=== PATIENT | female | born 1965 | race Caucasian/White ===

== ENCOUNTER 2017-12-26 16:03 | Outpatient (REF) | payer MEDICARE, SELFPAY ==
[2017-12-26 20:41] LABS: Abs Immature Grans 0.06 k/cumm (0.0-0.09); Absolute Basophil Count 0.05 k/cumm (0.0-0.2); Absolute Eosinophil Count 0.22 k/cumm (0.0-0.7); Absolute Lymphocyte Count 2.71 k/cumm (1.2-3.4); Absolute Monocyte Count 0.84 k/cumm (0.11-0.7); Absolute Neutrophil Count 7.84 k/cumm (1.2-6.7); Basophils % 0.4; Eosinophils % 1.9; Immature Grans % 0.5; Lymphocytes % 23.1; Mean Corp. HGB Concentration 33.3 g/dL (32.0-36.0); Mean Corpuscular Hemoglobin 32.8 pg (27.0-33.0); Mean Corpuscular Volume 98.5 fL (80-95); Mean Platelet Volume 10.8 fL (8.0-11.0); Monocytes % 7.2; Neutrophils % 66.9; Platelet Count 299 x1000/uL (130-400); RBC 4.57 m/cumm (4.00-5.20); RBC Distribution Width 13.1 % (11.7-14.6); White Blood Cell Count 11.72 k/cumm (4.4-10.8)
[2017-12-26 20:53] LABS: Anion Gap 11.2 mmol/L (3-11); BUN 12 mg/dL (7-18); CO2 25.8 mmol/L (21.0-32.0); CREATININE 0.92 mg/dL (0.55-1.02); Calcium 9.5 mg/dL (8.5-10.1); Chloride 104 mmol/L (98-107); Glucose 99 mg/dL (70-100); Potassium 4.6 mmol/L (3.5-5.1); Sodium 141 mmol/L (136-145); TSH (W/Ref FT4) 2.51 uIU/mL (0.358-3.74)
[2017-12-27 18:30] LABS: Magnesium 1.8 mg/dL (1.8-2.4)
== END 2017-12-26 16:23 ==
LOC: NCHCN 16:03
PROVIDERS: PCP Nurse Practitioner Family; Visit Provider Nurse Practitioner Family
DX: F41.8 Other specified anxiety disorders (principal); R34 Anuria and oliguria; L68.0 Hirsutism; E83.42 Hypomagnesemia; G47.33 Obstructive sleep apnea (adult) (pediatric); J44.9 Chronic obstructive pulmonary disease, unspecified; E66.9 Obesity, unspecified; M54.9 Dorsalgia, unspecified
CPT/HCPCS: 80048; 83735; 84443; 85025; 87086

== ENCOUNTER 2018-12-12 13:45 | Outpatient (REF) | payer BC, MEDICARE, SELFPAY ==
[2018-12-12 21:27] LABS: Abs Immature Grans 0.07 k/cumm (0.0-0.09); Absolute Eosinophil Count 0.16 k/cumm (0.0-0.7); Absolute Lymphocyte Count 2.65 k/cumm (1.2-3.4); Absolute Neutrophil Count 8.47 k/cumm (1.2-6.7); Basophils % 0.2; Eosinophils % 1.3; HCT 44.8 % (36.0-46.0); HGB 14.7 g/dL (12.0-15.5); Immature Grans % 0.6; Lymphocytes % 21.6; Mean Corp. HGB Concentration 32.8 g/dL (32.0-36.0); Mean Corpuscular Volume 97.6 fL (80-95); Mean Platelet Volume 10.3 fL (8.0-11.0); Monocytes % 7.3; Platelet Count 362 x1000/uL (130-400); RBC 4.59 m/cumm (4.00-5.20); RBC Distribution Width 13.2 % (11.7-14.6); White Blood Cell Count 12.27 k/cumm (4.4-10.8)
[2018-12-12 21:36] LABS: Absolute Basophil Count 0.02 k/cumm (0.0-0.2)
[2018-12-12 21:56] LABS: ALT 26 U/L (14-59); AST 16 U/L (15-37); Albumin 3.8 g/dL (3.4-5.0); Alkaline Phosphatase 72 U/L (46-116); Anion Gap 12.1 mmol/L (3-11); BUN 13 mg/dL (7-18); Bilirubin, Total 0.3 mg/dL (0.2-1.0); CO2 25.9 mmol/L (21.0-32.0); CREATININE 0.89 mg/dL (0.55-1.02); Calcium 9.3 mg/dL (8.5-10.1); Chloride 101 mmol/L (98-107); Glucose 94 mg/dL (70-100); Magnesium 1.6 mg/dL (1.8-2.4); Potassium 4.4 mmol/L (3.5-5.1); Sodium 139 mmol/L (136-145); TSH (W/Ref FT4) 2.18 uIU/mL (0.36-3.74); Total Protein 7.3 g/dL (6.4-8.2)
== END 2018-12-12 14:05 ==
LOC: NCHCN 13:45
PROVIDERS: PCP Nurse Practitioner Family; Visit Provider Nurse Practitioner Family
DX: R00.0 Tachycardia, unspecified (principal); E83.42 Hypomagnesemia; R79.89 Other specified abnormal findings of blood chemistry; R10.32 Left lower quadrant pain; I10 Essential (primary) hypertension; R19.7 Diarrhea, unspecified; L68.0 Hirsutism; J44.9 Chronic obstructive pulmonary disease, unspecified
CPT/HCPCS: 80053; 83036; 83735; 84443; 85025

== ENCOUNTER 2019-09-13 21:47 | Outpatient (REF) | payer OTHER, MEDICARE, SELFPAY ==
[2019-09-13 21:12] LABS: Hemoglobin A1C 5.9 % (3.8-5.6)
[2019-09-13 21:20] LABS: ALT 26 U/L (14-59); AST 16 U/L (15-37); Albumin 3.7 g/dL (3.4-5.0); Alkaline Phosphatase 82 U/L (46-116); Anion Gap 9.5 mmol/L (3-11); BUN 18 mg/dL (7-18); Bilirubin, Total 0.3 mg/dL (0.2-1.0); CO2 28.5 mmol/L (21.0-32.0); CREATININE 1.07 mg/dL (0.55-1.02); Calcium 9.3 mg/dL (8.5-10.1); Chloride 102 mmol/L (98-107); Estimated GFR 54.06 (mL/min/1.73m2); Glucose 75 mg/dL (74-106); Magnesium 1.8 mg/dL (1.8-2.4); Potassium 4.5 mmol/L (3.5-5.1); Sodium 140 mmol/L (136-145); Total Protein 7.1 g/dL (6.4-8.2)
[2019-09-17 10:37] LABS: HIV-1/2 Ag & Ab Screen Negative (Negative)
[2019-09-17 11:02] LABS: Hepatitis C Ab w Rflx HCV PCR Negative (Negative)
== END 2019-09-13 22:07 ==
LOC: NCHCN 21:47
PROVIDERS: PCP Nurse Practitioner Family; Visit Provider Nurse Practitioner Family
DX: R73.03 Prediabetes (principal); E83.42 Hypomagnesemia; I10 Essential (primary) hypertension; F41.8 Other specified anxiety disorders; F10.10 Alcohol abuse, uncomplicated; E66.9 Obesity, unspecified; M54.9 Dorsalgia, unspecified; Z11.4 Encounter for screening for human immunodeficiency virus [HIV]; Z11.59 Encounter for screening for other viral diseases
CPT/HCPCS: 80053; 86803; 87389; 83036; 83735

== ENCOUNTER 2020-02-08 22:30 | Outpatient (REF) | payer OTHER, MEDICARE, SELFPAY ==
[2020-02-08 22:10] LABS: Hemoglobin A1C 6.1 % (<5.7)
== END 2020-02-08 22:50 ==
LOC: NCHCN 22:30
PROVIDERS: PCP Nurse Practitioner Family; Visit Provider Nurse Practitioner Family
DX: R73.03 Prediabetes (principal)
CPT/HCPCS: 83036

== ENCOUNTER 2020-08-07 16:35 | Outpatient (REF) | payer OTHER, MEDICARE, SELFPAY ==
[2020-08-07 20:58] LABS: Abs Immature Grans 0.08 10^3/uL (0.0-0.06); Absolute Monocyte Count 0.78 10^3/uL (0.1-0.8); Basophils % 0.3; HCT 45.8 % (36.0-46.0); Immature Grans % 0.7; Lymphocytes % 18.7; MCH 31.7 pg (27.0-33.0); MCHC 32.8 % (32.0-36.0); MCV 96.8 fL (80-95); MPV 10.7 fL (8.0-11.0); Monocytes % 6.8; Neutrophils % 72.5; Nucleated RBC 0 %; Platelet Count 339 10^3/uL (130-400); RBC 4.73 10^6/uL (3.93-5.22); RDW 13.9 % (11.7-14.6); RDW-SD 49.7 fL; WBC 11.47 10^3/uL (4.4-10.8)
[2020-08-07 21:09] LABS: Iron 82 ug/dL (50-170); Total Iron Binding Capacity 362 ug/dL (250-450); Transferrin Sat 23 % (15-50)
[2020-08-07 21:17] LABS: Absolute Basophil Count 0.03 10^3/uL (0.0-0.2); Absolute Eosinophil Count 0.11 10^3/uL (0.0-0.7); Absolute Lymphocyte Count 2.14 10^3/uL (1.2-3.4); Absolute Neutrophil Count 8.32 10^3/uL (1.2-6.7)
[2020-08-07 21:36] LABS: AST 39 U/L (15-37); Albumin 3.7 g/dL (3.4-5.0); Alkaline Phosphatase 89 U/L (46-116); Anion Gap 8.8 mmol/L (3-11); BUN 19 mg/dL (7-18); Bilirubin, Total 0.4 mg/dL (0.2-1.0); CO2 31.2 mmol/L (21.0-32.0); CREATININE 1.1 mg/dL (0.55-1.02); Calcium 9.7 mg/dL (8.5-10.1); Chloride 103 mmol/L (98-107); Estimated GFR 52.16 (mL/min/1.73m2); Ferritin 171 ng/mL (8-252); Glucose 105 mg/dL (74-106); Potassium 4.1 mmol/L (3.5-5.1); Sodium 143 mmol/L (136-145); TSH (W/Ref FT4) 1.52 uIU/mL (0.36-3.74); Total Protein 7.5 g/dL (6.4-8.2); Vitamin B12 483 pg/mL (193-986)
[2020-08-07 21:45] LABS: Hemoglobin A1C 6.3 % (<5.7)
[2020-08-07 21:56] LABS: ALT 54 U/L (14-59); Magnesium 1.6 mg/dL (1.8-2.4); NT-proBNP 37 pg/mL (<300)
== END 2020-08-07 16:36 | disposition home or self-care (01) ==
LOC: NCHCN 16:35
PROVIDERS: PCP Nurse Practitioner Family; Visit Provider Nurse Practitioner Family
DX: R73.03 Prediabetes (principal); E83.42 Hypomagnesemia; F41.8 Other specified anxiety disorders; K76.0 Fatty (change of) liver, not elsewhere classified; R13.10 Dysphagia, unspecified; J44.9 Chronic obstructive pulmonary disease, unspecified; I43 Cardiomyopathy in diseases classified elsewhere; G47.33 Obstructive sleep apnea (adult) (pediatric)
CPT/HCPCS: 80053; 82607; 82728; 83036; 83540; 83550; 83735; 83880; 84443; 85025

== ENCOUNTER 2021-07-02 18:42 | Outpatient (REF) | payer MEDICARE, SELFPAY ==
[2021-07-02 22:14] LABS: HCT 49.4 % (36.0-46.0); HGB 15.7 g/dL (11.2-15.7); MCH 31.2 pg (27.0-33.0); MCHC 31.8 % (32.0-36.0); MCV 98.2 fL (80-95); MPV 10.7 fL (8.0-11.0); Platelet Count 288 10^3/uL (130-400); RBC 5.03 10^6/uL (3.93-5.22); RDW 13.9 % (11.7-14.6); RDW-SD 50.4 fL; WBC 12.17 10^3/uL (4.4-10.8)
[2021-07-02 22:22] LABS: ALT 26 U/L (14-59); AST 20 U/L (15-37); Albumin 3.7 g/dL (3.4-5.0); Alkaline Phosphatase 92 U/L (46-116); BUN 16 mg/dL (7-18); Bilirubin, Total 0.4 mg/dL (0.2-1.0); CREATININE 0.9 mg/dL (0.55-1.02); Calcium 9.1 mg/dL (8.5-10.1); Chloride 101 mmol/L (98-107); Glucose 91 mg/dL (74-106); Potassium 4.6 mmol/L (3.5-5.1); Sodium 141 mmol/L (136-145); Total Protein 7.5 g/dL (6.4-8.2)
[2021-07-02 22:31] LABS: Hemoglobin A1C 6.1 % (<5.7)
[2021-07-06 10:26] LABS: Magnesium 1.8 mg/dL (1.8-2.4)
== END 2021-07-02 18:43 | disposition home or self-care (01) ==
LOC: NCHCN 18:42
PROVIDERS: PCP Nurse Practitioner Family; Visit Provider Nurse Practitioner Family
DX: R73.03 Prediabetes (principal); R13.10 Dysphagia, unspecified; K76.0 Fatty (change of) liver, not elsewhere classified; F41.8 Other specified anxiety disorders; F17.209 Nicotine dependence, unspecified, with unspecified nicotine-induced disorders
CPT/HCPCS: 80053; 85027; 83036; 83735

== ENCOUNTER 2022-08-26 18:05 | Outpatient (REF) | payer MEDICARE, SELFPAY ==
[2022-08-26 14:59] LABS: Abs Immature Grans 0.06 10^3/uL (0.0-0.06); Absolute Monocyte Count 1.02 10^3/uL (0.1-0.8); Basophils % 0.3; Eosinophils % 1.4; HCT 45.6 % (36.0-46.0); HGB 14.9 g/dL (11.2-15.7); Immature Grans % 0.5; Lymphocytes % 22.9; MCH 31.5 pg (27.0-33.0); MCHC 32.7 % (32.0-36.0); MCV 96 fL (80-95); MPV 11.1 fL (8.0-11.0); Monocytes % 8.6; Neutrophils % 66.3; Platelet Count 288 10^3/uL (130-400); RBC 4.73 10^6/uL (3.93-5.22); RDW 12.4 % (11.7-14.6); RDW-SD 44.1 fL; WBC 11.81 10^3/uL (4.4-10.8)
[2022-08-26 15:00] LABS: Absolute Basophil Count 0.04 10^3/uL (0.0-0.2); Absolute Eosinophil Count 0.17 10^3/uL (0.0-0.7); Absolute Neutrophil Count 7.83 10^3/uL (1.2-6.7)
== END 2022-08-26 18:06 | disposition home or self-care (01) ==
LOC: NCHCN 18:05
PROVIDERS: PCP Nurse Practitioner Family; Visit Provider Nurse Practitioner Family
DX: D75.1 Secondary polycythemia (principal); D72.829 Elevated white blood cell count, unspecified; I50.9 Heart failure, unspecified; K76.0 Fatty (change of) liver, not elsewhere classified
CPT/HCPCS: 85025

== ENCOUNTER 2022-09-20 01:32 | Outpatient (CLI) | payer MEDICARE, SELFPAY ==
--- NOTE | 2022-09-20 | DI.US_ITS ---
Exam(s) US ABDOMEN LIMITED EXAM: US ABDOMEN LIMITED CLINICAL HISTORY: FATTY LIVER DISEASE, K76.0 TECHNIQUE: Ultrasound abdomen performed using standard protocol. US PELVIS TRANSVAG from 01/02/2015 CT CHEST WITHOUT CONTRAST from 04/25/2015 FINDINGS: GALLBLADDER: No evidence of cholelithiasis. No evidence of wall thickening. No pericholecystic fluid identified. ANNA'S SIGN: Negative. BILIARY SYSTEM: No intrahepatic or extrahepatic biliary ductal dilation. RIGHT KIDNEY: Normal size. No evidence of renal calculi. Mildly prominent right renal pelvis.. No duke spicious renal mass. No cyst identified. PANCREAS: Normal where visualized. ABDOMINAL AORTA AND IVC: Visualized portions normal caliber. ASCITES: None seen. LIVER: Enlarged at 19.1 cm. Fatty infiltration.. No focal liver lesions are seen.. IMPRESSION: Enlarged liver with mild to moderate hepatic steatosis. DATA REPOSITORY:
--- NOTE | 2022-09-20 | DI.CTLCSR_ITS ---
Exam(s) CT CHEST LUNG CANCER SCREEN EXAM: CT CHEST LUNG CANCER SCREEN CLINICAL HISTORY: CIGARETTE SMOKER, F17.210, TOBACCO DISORDER, F17.209, SCREEN FOR LUNG CA TECHNIQUE: Imaging Protocol: Axial computed tomography images with coronal and sagittal reformatted images were created and reviewed. Low dose screening protocol. COMPARISON: CT CHEST WITHOUT CONTRAST from 04/25/2014 CT CHEST HIGH RESOLUTION from 04/25/2014 CT CHEST WITHOUT CONTRAST from 04/25/2015 FINDINGS: Tracheobronchial tree: No bronchiectasis or mucus plugging.. Mediastinum and Lia: No dominant adenopathy or fluid collection. Pulmonary parenchyma: No consolidation or dominant measurable mass. Mild linear scarring at the base s. Linear scarring right upper lobe. Mild emphysematous changes. Lung Nodules: Stable small right-sided perifissural nodules. Stable 7 millimeter subpleural nodule r ight lower lobe. Stable 7 millimeters subpleural nodule right middle lobe. Pleura: No effusion. No pneumothorax. Heart: The heart is not dilated. No coronary artery calcifications are seen. Aorta: Thoracic aorta non-dilated. Upper abdomen: Unremarkable. Bones: Degenerative disc changes. Soft Tissues: Unremarkable. IMPRESSION: No suspicious pulmonary nodules. Stable subpleural nodules. Lung RADS Cat 2 - Benign Appearance / Behavior: Nodules with a very low likelihood of becoming a clin ically active cancer due to size or lack of growth Lung-RADS 1.0 CATEGORIES: Category 0 - Prior chest CT exam(s) being located for comparison. Category 1 - Annual screening in 12 months. No nodules or definitely benign nodules. Category 2 - Annual screening in 12 months. Benign appearance. Nodules with low likelihood of becomin g active cancer. Category 3 - 6-month follow-up. Probably benign. Short-term follow-up suggested. Nodules with low lik elihood of becoming active cancer. Category 4A - 3-month follow-up and CT/PET if >8 mm in size. Suspicious finding. Findings which requi re additional testing. Category 4B - Findings which require additional testing and tissue sampling. Category 4X - Category 3 or 4 nodules with additional features or imaging findings that increases the suspicion of malignancy. Modifier S- Potentially clinically significant findings (non lung cancer) RADIATION DOSE DELIVERED: 92.07mGy.cm Total DLP DATA REPOSITORY: All CT scans at this facility are submitted to the National Radiology Data Registry (NRDR) Dose Index Registry (DIR) with the [employer] (ACR). RADIATION OPTIMIZATION: All CT scans at this facility use at least one of these dose optimization te chniques: automated exposure control; mA and/or kV adjustment per patient size (includes targeted exa ms where dose is matched to clinical indication); or iterative reconstruction.
== END 2022-09-20 01:52 ==
LOC: DI 01:32
PROVIDERS: PCP Nurse Practitioner Family; Visit Provider Nurse Practitioner Family
DX: F17.210 Nicotine dependence, cigarettes, uncomplicated (principal); Z12.2 Encounter for screening for malignant neoplasm of respiratory organs
CPT/HCPCS: 71271; 99203; 76705

== ENCOUNTER 2022-09-20 08:21 | Outpatient (CLI) | payer MEDICARE, SELFPAY ==
--- NOTE | 2022-09-20 08:15 | RT.EKG_ITS ---
APPROVED REPORT Exam: Resting ECG Reason for Exam: HTN, heart failure Patient Location: O HR:82 bpm ECG Measurements Heart Rate 82 AXIS NE 176 P 40 QRSd 97 QRS -29 QT 385 T 57 QTc 450 Conclusion Sinus rhythm...normal P axis, V-rate 50- 99 left axis deviation...QRS axis (-15,-29) Low voltage, Poor R wave progression
== END 2022-09-20 08:22 | disposition home or self-care (01) ==
LOC: DI.CARD 08:24
PROVIDERS: PCP Nurse Practitioner Family; Visit Provider Internal Medicine Cardiovascular Disease
DX: I10 Essential (primary) hypertension (principal); I50.9 Heart failure, unspecified
CPT/HCPCS: 93010

== ENCOUNTER 2022-09-20 10:57 | Outpatient (CLI) | payer MEDICARE, SELFPAY ==
[2022-09-20 10:22] LABS: Abs Immature Grans 0.06 10^3/uL (0.0-0.06); Absolute Eosinophil Count 0.15 10^3/uL (0.0-0.7); Absolute Lymphocyte Count 2.23 10^3/uL (1.2-3.4); Absolute Monocyte Count 0.73 10^3/uL (0.1-0.8); Basophils % 0.2; Eosinophils % 1.2; HCT 43.7 % (36.0-46.0); HGB 14.2 g/dL (11.2-15.7); Immature Grans % 0.5; Lymphocytes % 18.1; MCH 31.3 pg (27.0-33.0); MCHC 32.5 % (32.0-36.0); MCV 97 fL (80-95); MPV 10.3 fL (8.0-11.0); Monocytes % 5.9; Neutrophils % 74.1; Platelet Count 279 10^3/uL (130-400); RBC 4.53 10^6/uL (3.93-5.22); RDW 12.6 % (11.7-14.6); RDW-SD 44.7 fL
[2022-09-20 10:24] LABS: Absolute Basophil Count 0.02 10^3/uL (0.0-0.2); Absolute Neutrophil Count 9.11 10^3/uL (1.2-6.7)
[2022-09-20 10:36] LABS: Hemoglobin A1C 5.9 % (<5.7)
[2022-09-20 11:45] LABS: ALT 32 U/L (14-59); AST 19 U/L (15-37); Albumin 3.6 g/dL (3.4-5.0); Alkaline Phosphatase 83 U/L (46-116); Anion Gap 8.1 mmol/L (3-11); BUN 19 mg/dL (7-18); Bilirubin, Total 0.4 mg/dL (0.2-1.0); CO2 28.9 mmol/L (21.0-32.0); CREATININE 0.9 mg/dL (0.55-1.02); Calcium 9.9 mg/dL (8.5-10.1); Chloride 105 mmol/L (98-107); Estimated GFR 75.97 (mL/min/1.73m2); Folate 12.5 ng/mL (8.6-20.0); Glucose 117 mg/dL (74-106); Magnesium 1.7 mg/dL (1.8-2.4); Potassium 4.2 mmol/L (3.5-5.1); Sodium 142 mmol/L (136-145); Total Protein 8.3 g/dL (6.4-8.2); Vitamin B12 494 pg/mL (193-986)
[2022-10-05 12:54] LABS: Results See Comments; Specimen Type Blood
[2022-10-05 13:02] LABS: Interpretation See Comments
[2022-10-05 13:08] LABS: Method See Comments
[2022-10-05 13:15] LABS: Limitations and Disclaimers See Comments
[2022-10-05 13:18] LABS: Verified By: See Comments
== END 2022-09-20 10:58 | disposition home or self-care (01) ==
LOC: LBO 10:57
PROVIDERS: PCP Nurse Practitioner Family; Visit Provider Nurse Practitioner Family
DX: R73.03 Prediabetes (principal); D75.1 Secondary polycythemia; D72.829 Elevated white blood cell count, unspecified; D75.89 Other specified diseases of blood and blood-forming organs; E83.42 Hypomagnesemia; K76.0 Fatty (change of) liver, not elsewhere classified
CPT/HCPCS: 0027U; 36415; 80053; 81270; 82607; 82746; 83036; 83735; 85025

== ENCOUNTER → 2022-12-28 00:04 | Outpatient (CLI) | payer MEDICARE, SELFPAY ==
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
--- NOTE | 2022-12-28 07:00 | DI.US_ITS ---
APPROVED REPORT EXAM: Comprehensive 2D, Doppler, and color-flow Echocardiogram Patient Location: Out-Patient Employment Interviewer: Magalie Molina RDCS (AE) Indications: RE check LV Function, Cardiomyopathy, Obstructive sleep apnea, COPD Other Information Study Quality: Fair. Technically limited study due to body habitus. Conclusion Technically difficult study Normal left ventricular wall thickness and chamber size. Ejection fraction is 55%. Wall motion is n ormal Normal right ventricular size and systolic function Both atria are normal in size There is no structural or hemodynamically significant valvular disease Right ventricular systolic pressure could not be estimated Wall motion Left Ventricle Left ventricle is mildly dilated. The overall left ventricular systolic function appears normal. Ther e is normal left ventricular wall thickness. There is normal LV segmental wall motion. There is no ve ntricular septal defect visualized. LVEF is 55%. Right Ventricle The right ventricle is normal size. The right ventricular systolic function is normal. Atria The left atrium size is normal. The right atrium size is normal. The interatrial septum is intact wit h no evidence for an atrial septal defect. Aortic Valve The aortic valve is normal in structure. Aortic valve is trileaflet. There is no aortic valvular sten osis. No aortic regurgitation is present. Mitral Valve The mitral valve is normal in structure. No evidence of mitral valve stenosis. Trace mitral regurgita tion. Tricuspid Valve The tricuspid valve is normal in structure. There is no tricuspid valve stenosis. Trace tricuspid reg urgitation. Unable to assess PA pressure. Pulmonic Valve Pulmonic valve is not well visualized. There is no pulmonic valvular stenosis. There is no pulmonic v alvular regurgitation. Great Vessels The aortic root is normal in size. The ascending aorta is normal in size. Aortic arch is not well vis ualized. IVC is normal in size and collapses >50% with inspiration. Pericardium There is no pericardial effusion. 2D Dimensions IVSD d PLAX 0.83 cm F: 0.6-1.0 Ao Root d 2.80 cm F: 2.7 - 3.3 LVPW d PLAX 0.88 cm F: 0.6 - 1.0 Ao Asc Diam d 2.87 cm F: 2.3 - 3.1 LVID d PLAX 5.46 cm F: 3.8 - 5.2 LVDs 3.81 cm F: 2.2 - 3.5 LV EF Teichholz 56.9 % FS 30.15 % LV EDV (Teich) 145.0 mL LV ESV (Teich) 62.5 mL M-Mode TAPSE 2.32 cm (M/F) >1.7 Auto EF LV EDV A4C 102.0 mL LV EDV A2C 103.0 mL LV EDV BP 102.3 mL LV ESV A4C 45.3 mL LV ESV A2C 48.0 mL LV ESV BP 46.3 mL LVEF(%) A4C 55.6 % LVEF(%) A2C 53.4 % LVEF(%) BP 54.8 % LV SV A4C 56.8 ml LV SV A2C 55.0 ml LV SV BP 56.0 ml LV CO A4C 3.0 L/min LV CO A2C 3.3 L/min LV CO BP 3.1 L/min HR A4C 53.09 BPM HR A2C 59.31 BPM LV EDV Index (BP) LA Volume LA Length A4C 5.7 cm LA Length A2C 5.0 cm LA Area A4C s 16.17 cm2 LA Area A2C s 14.28 cm2 LA Vol A4C A-L 38.85 mL LA Vol A2C A-L 34.38 mL LA Vol Biplane A-L 38.9 mL LA Vol/BSA A4C A-L LA Vol/BSA A2C A-L LA Vol/BSA BP A-L 15.1 mL/m2 LA Vol A4C MOD 37.4 mL LA Vol A2C MOD 33.1 mL LA Vol BP MOD 37.3 mL RA Volume RA Area A4C 12.2 cm2 RA ESV A4C (A-L) 25.6mL RA Vol/BSA A4C A-L RA Length A4C 4.9 cm RA ESV A4C (MOD) 24.3mL LV Diastology MV E' medial 0.084 (>0.07 m/s) MV E Vmax 0.71 (0.4-1.3 m/s) MV E/E' MED 8.46 (<14) MV A Vmax 0.65 (0.4-1.3 m/s) MV E' lateral 0.098 (>0.1 m/s) E/A Ratio 1.1 MV E/E' LAT 7.28 (<14) MV E' Average 0.091 m/s MV E/E'(average) 7.83 Aortic Valve AoV Vmax 1.12 m/s LVOT Diam s 2.05 cm AoV Peak Grad 5.1 mmHg AoV VTI 0.218 m AoV Mean Eloy. 0.63 m/s AoV Mean Grad 2.0 mmHg Mitral Valve MV DT 182 (160-240 msec) MV Vmax TIPS 0.78 m/s MV Mean Grad 0.9 (<2mmHg) MV VTI 0.254 m Pulmonary Valve PV Vmax 0.87 (0.5-1.5 m/s) RVOT Vmax 0.71 m/s PV Peak Grad 3.0 mmHg RVOT Peak Gr. 2.0 mmHg PV Mean Eloy 0.63 m/s RVOT VTI 0.192 m PV Mean Grad 1.8 mmHg RVOT Mean Gr. 1.3 mmHg Tricuspid Valve RA Pressure 3.00 mmHg TV S' 0.13 m/s
== END ==
PROVIDERS: PCP Nurse Practitioner Family; Visit Provider Internal Medicine Cardiovascular Disease
DX: G47.33 Obstructive sleep apnea (adult) (pediatric) (principal)
CPT/HCPCS: 93306

== ENCOUNTER 2023-01-10 04:01 | Outpatient (CLI) | payer MEDICARE, SELFPAY ==
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
[2023-01-10] MEDS: Levalbuterol HFA 15 GM INH 4 PUFF IH (09:23)
[2023-01-10] MEDS: Inhaler, Assist Device 1 EACH MC (09:24)
--- NOTE | 2023-01-10 14:17 | W.PFT ---
Date of service: 01/10/23 Time of Service: 08:03 Pulmonary Function Test Result Indications: COPD Interpretation Spirometry: There is severe airflow limitation. No bronchodilator response. Lung Volumes: Unable to perform Diffusion Capacity: Reduced diffusion Airway Pressure: Unable to perform Impression Severe airflow obstruction with a reduced diffusion Clinical Correlation therefore is recommended.
== END 2023-01-10 04:02 | disposition home or self-care (01) ==
LOC: RT 04:01
PROVIDERS: PCP Nurse Practitioner Family; Visit Provider Physician Assistant Surgical
DX: J44.9 Chronic obstructive pulmonary disease, unspecified (principal)
CPT/HCPCS: 94060; 94729

== ENCOUNTER 2023-04-07 14:29 | Outpatient (REF) | payer MEDICARE, SELFPAY ==
[2023-04-07 14:19] LABS: Abs Immature Grans 0.07 10^3/uL (0.0-0.06); Absolute Basophil Count 0.06 10^3/uL (0.0-0.2); Absolute Eosinophil Count 0.17 10^3/uL (0.0-0.7); Absolute Neutrophil Count 10.51 10^3/uL (1.2-6.7); Basophils % 0.4; Eosinophils % 1.2; HCT 45.1 % (36.0-46.0); Immature Grans % 0.5; Lymphocytes % 18.6; MCH 32.3 pg (27.0-33.0); MCHC 33.3 % (32.0-36.0); MCV 97 fL (80-95); MPV 10.3 fL (8.0-11.0); Monocytes % 6.9; Neutrophils % 72.4; Platelet Count 335 10^3/uL (130-400); RBC 4.65 10^6/uL (3.93-5.22); RDW 12.7 % (11.7-14.6); RDW-SD 45.1 fL; WBC 14.51 10^3/uL (4.4-10.8)
[2023-04-07 14:32] LABS: Magnesium 1.8 mg/dL (1.8-2.4)
== END 2023-04-07 14:30 | disposition home or self-care (01) ==
LOC: NCHCN 14:29
PROVIDERS: PCP Nurse Practitioner Family; Visit Provider Nurse Practitioner Family
DX: D75.1 Secondary polycythemia (principal); K76.0 Fatty (change of) liver, not elsewhere classified; R73.03 Prediabetes; E83.42 Hypomagnesemia
CPT/HCPCS: 83036; 83735; 85025

== ENCOUNTER → 2023-08-29 10:05 | Outpatient (BNVA) | payer MEDICARE, SELFPAY | PROVIDERS: PCP Nurse Practitioner Family; Referring Provider Nurse Practitioner Family; Visit Provider Physician Assistant Surgical | DX: J44.9 Chronic obstructive pulmonary disease, unspecified (principal); R91.8 Other nonspecific abnormal finding of lung field; G47.33 Obstructive sleep apnea (adult) (pediatric); J96.91 Respiratory failure, unspecified with hypoxia; I27.20 Pulmonary hypertension, unspecified; F17.210 Nicotine dependence, cigarettes, uncomplicated | CPT/HCPCS: 99214 ==

== ENCOUNTER 2023-08-30 18:23 | Outpatient (REF) | payer MEDICARE, SELFPAY ==
[2023-08-30 21:22] LABS: Abs Immature Grans 0.05 10^3/uL (0.0-0.06); Absolute Basophil Count 0.03 10^3/uL (0.0-0.2); Absolute Eosinophil Count 0.16 10^3/uL (0.0-0.7); Absolute Lymphocyte Count 2.98 10^3/uL (1.2-3.4); Absolute Monocyte Count 0.86 10^3/uL (0.1-0.8); Absolute Neutrophil Count 8.58 10^3/uL (1.2-6.7); Basophils % 0.2 %; Eosinophils % 1.3 %; HCT 45.8 % (36.0-46.0); HGB 14.8 g/dL (11.2-15.7); Immature Grans % 0.4 %; Lymphocytes % 23.5 %; MCH 31.4 pg (27.0-33.0); MCHC 32.3 % (32.0-36.0); MCV 97 fL (80-95); MPV 10.4 fL (8.0-11.0); Monocytes % 6.8 %; Neutrophils % 67.8 %; Platelet Count 328 10^3/uL (130-400); RBC 4.71 10^6/uL (3.93-5.22); RDW 12.9 % (11.7-14.6); RDW-SD 45.7 fL; WBC 12.66 10^3/uL (4.4-10.8)
[2023-08-30 21:33] LABS: ALT 25 U/L (14-59); AST 14 U/L (15-37); Albumin 3.5 g/dL (3.4-5.0); Alkaline Phosphatase 85 U/L (46-116); Anion Gap 8.3 mmol/L (3-11); BUN 20 mg/dL (7-18); Bilirubin, Total 0.3 mg/dL (0.2-1.0); CO2 30.7 mmol/L (21.0-32.0); CREATININE 1.1 mg/dL (0.55-1.02); Calcium 9.5 mg/dL (8.5-10.1); Chloride 100 mmol/L (98-107); Estimated GFR 59.34 (mL/min/1.73m2); Glucose 92 mg/dL (74-106); Magnesium 1.7 mg/dL (1.8-2.4); Potassium 4.4 mmol/L (3.5-5.1); Sodium 139 mmol/L (136-145); Total Protein 7.6 g/dL (6.4-8.2)
[2023-08-30 21:36] LABS: Hemoglobin A1C 6.1 % (<5.7)
== END 2023-08-30 18:24 | disposition home or self-care (01) ==
LOC: NCHCN 18:23
PROVIDERS: PCP Nurse Practitioner Family; Visit Provider Nurse Practitioner Family
DX: K76.0 Fatty (change of) liver, not elsewhere classified (principal); E83.42 Hypomagnesemia
CPT/HCPCS: 80053; 83036; 83735; 85025